=== PATIENT | male | born 1995 | race African-American/Black ===

== ENCOUNTER 2016-07-21 22:04 | Emergency (ER) | payer OTHER ==
[~2016-07-21] VITALS: Ht 182.9 cm; Wt 102.2 kg
[~2016-07-21 22:04] MED LIST: NOHOMEMEDS; PREDNISONE20 MG PO
[2016-07-21 22:55] LABS: HEMATOCRIT 45.6 % (38.0-50.0); MCH 26.4 PG (29.0-34.0); MCV 77.6 FL (86-99); RBC DIS.WIDTH-CV 14.2 % (11.8-14.6); RBC DIS.WIDTH-SD 39.4 % (39-53); RED BLOOD COUNT 5.88 M/uL (4.00-5.50); WHITE BLOOD COUNT 13.7 K/uL (4.1-10.2)
[2016-07-21 23:00] LABS: MEAN PLAT.VOLUME 11.2 uM^3 (9.0-12.4); PLATELET COUNT 225 K/uL (156-360)
[2016-07-21 23:06] LABS: CHLORIDE 107 mEq/L (99-109); POTASSIUM 4.3 mEq/L (3.7-5.4); PROTHROMBIN TIME 10.1 (9.2-11.2); SODIUM 140 mEq/L (136-147)
[2016-07-21 23:07] LABS: GLUCOSE 104 mg/dL (70-99)
[2016-07-21 23:09] LABS: ANION GAP 12 MEQ/L (2-14)
[2016-07-21 23:11] LABS: GFR ESTIMATE (CALCULATED) > 59 mL/min/; SERUM ETHYL ALCOHOL < 10 mg/dL
[2016-07-21 23:12] LABS: UREA NITROGEN (BUN) 16 mg/dL (9-23)
[2016-07-21 23:18] LABS: TROP-I INTERPRETATION NEGATIVE; TROPONIN-I < 0.01 ng/mL (0.0-0.30)
[2016-07-22 00:42] VITALS: BP 126/79
== END 2016-07-22 00:42 | disposition home or self-care (01) ==
LOC: EME 22:04
PROVIDERS: Emergency Medicine
PROC: 0HQ0XZZ Repair Scalp Skin, External Approach (ICD-10-PCS; principal; 2016-07-21)
DX: S06.0X9A Concussion with loss of consciousness of unspecified duration, initial encounter (principal); S01.01XA Laceration without foreign body of scalp, initial encounter; S50.312A Abrasion of left elbow, initial encounter; Y00.XXXA Assault by blunt object, initial encounter; T65.91XA Toxic effect of unspecified substance, accidental (unintentional), initial encounter; I95.89 Other hypotension; R09.02 Hypoxemia; R94.31 Abnormal electrocardiogram [ECG] [EKG]
CPT/HCPCS: 70450; 71010; 72125; 73080; 80048; 83605; 84484; 85027; 85610; 85730; 86900; 86901; 93005; 99281; 99284; G0480; J7030